=== PATIENT | female | born 1985 ===

== ENCOUNTER 2017-02-05 08:07 | Day surgery (SDC) | payer OTHER ==
[2017-02-05] MEDS ORDERED: cefOXitin IV 2 gm in Dextrose 2 GM/50 ML BAG IVPB ONE (10:50)
[2017-02-05] MEDS ORDERED: Propofol 10 mg/ml Inj (20 ML) ONE (10:58)
[2017-02-05] MEDS ORDERED: Midazolam 2 MG/2 ML VIAL ONE (10:58)
[2017-02-05] MEDS ORDERED: Lactated Ringer's 1,000 ML IV ONE (11:00)
[2017-02-05] MEDS ORDERED: Sodium Chloride 0.9% 20 ML IV ONE (11:57)
--- NOTE | 2017-02-05 14:22 | OP ---
PROCEDURE DATE: 02/05/2017 PREOPERATIVE DIAGNOSIS: Missed . POSTOPERATIVE DIAGNOSIS: Missed . PROCEDURE: Dilation and curettage of the uterus under ultrasound guidance. FINDINGS: An extremely stenotic cervix. Uterus above 6 weeks size with moderate products of conception. SURGEON: Baldev Good MD ANESTHESIA: General. ESTIMATED BLOOD LOSS: 50 mL. COMPLICATIONS: Nil. DESCRIPTION OF PROCEDURE: After the risks, benefits and alternatives of the planned procedures including, but not limited to the infection, hemorrhage, deep vein thrombosis, atelectasis, pneumonia, pulmonary embolism, damage to the bladder, damage to the ureter, renal insufficiency, renal failure, wound infection, wound dehiscence, incisional hernia, keloid formation, damage to large and small intestine, damage to inferior vena cava and aorta requiring extensive repair, anesthesia complications, electrolyte imbalance, possibility of , fluid overload, cerebral edema, uterine perforation, Asherman syndrome, retained products of conception and other complications that were discussed but are not listed above have been explained to the patient and all her questions answered, informed consent was obtained. The patient was taken to the operating room in a stable condition. Under a suitable level of general anesthesia, she was prepped and draped in a sterile fashion after having been placed in a dorsal lithotomy position. Bladder was emptied by straight catheterization. Examination under anesthesia revealed a 6-week size uterus, anteverted with no adnexal masses. A weighted speculum was inserted into vagina. The anterior lip of the cervix was grasped using a single-tooth tenaculum. The cervix was dilated to #7 Hegar dilator. Dilation was extremely difficult because the patient had significant degree of cervical stenosis and needed to be done under ultrasound guidance to avoid perforation of the uterus. A 7-mm suction tip was inserted into the uterus and contents of the endometrial cavity was suctioned out under ultrasound guidance. Half of the tissue was divided for chromosomal analysis and the remaining half was sent for general pathology. At the end of the procedure, instruments were removed from the vagina. There was good hemostasis. The patient tolerated the procedure well and was returned to the recovery room in a stable condition. Sponge, needle and instrument counts were correct x2. There were no complications. Baldev Good MD [facility] # [id number]
[2017-02-05 16:16] VITALS: BP 114/60; PULSE 80; RESP 18; TEMP 97.5; O2SAT 99
== END 2017-02-05 15:05 | disposition home or self-care (01) ==
LOC: C.SDS 08:07
PROVIDERS: ATTEND Obstetrics & Gynecology Reproductive Endocrinology
DX: O02.1 Missed abortion (principal)
CPT/HCPCS: 36415; 59820; 86850; 86900; 88233; 88262; 88305; J0694; J2210; J2250; J2704; J3010; J7120

== ENCOUNTER 2017-02-20 06:34 | Emergency (ER) | payer OTHER ==
[2017-02-20 06:43] VITALS: TEMP 97.9; O2SAT 98
[2017-02-20 07:21] LABS: RBC URINE 14 /hpf (0-3); URINE BACTERIA RARE (<OCC); URINE BILIRUBIN NEGATIVE (NEGATIVE); URINE BLOOD 3+ (NEGATIVE); URINE COLOR Straw (YELLOW); URINE GLUCOSE (UA) NORMAL (Normal); URINE KETONE NEGATIVE (NEGATIVE); URINE LEUKOCYTE ESTERASE 2+ Leu/uL (Negative); URINE PROTEIN NEGATIVE (NEGATIVE); URINE UROBILINOGEN NORMAL mg/dL (0.2-1.0); WBC URINE 9 /hpf (0-5)
[2017-02-20 07:36] LABS: BASO % 0.2 % (0.0-2.0); EOS # 0.1 K/uL (0.0-0.7); EOS % 0.4 % (0.0-4.0); HEMATOCRIT 39.2 % (34.0-47.0); LYMPH # 1.2 K/uL (1.0-4.3); LYMPH % 9.6 % (20.0-40.0); MEAN CORPUSCULAR HEMOGLOBIN 31.3 pg (27.0-31.0); MEAN CORPUSCULAR HGB CONC 34.4 g/dL (33.0-37.0); MEAN PLATELET VOLUME 8.3 fL (7.2-11.7); MONO # 0.6 K/uL (0.0-0.8); PLATELET COUNT 290 K/uL (130-400); RED CELL DISTRIBUTION WIDTH 12.6 % (11.5-14.5); WHITE BLOOD COUNT 13.1 K/uL (4.8-10.8)
[2017-02-20 07:50] LABS: CHLORIDE 100 mmol/L (98-107); POTASSIUM 4.2 mmol/L (3.6-5.2); SODIUM 137 mmol/L (132-148)
[2017-02-20 07:52] LABS: GFR AFRICAN-AMERICAN > 60
[2017-02-20 07:53] LABS: ALB/GLOB RATIO 1.3 (1.0-2.1); ALKALINE PHOSPHATASE 53 U/L (38-126); ALT/SGPT 22 U/L (9-52); AST/SGOT 16 U/L (14-36); BLOOD UREA NITROGEN 15 mg/dL (7-17); CALCIUM 6.9 mg/dl (8.6-10.4); CARBON DIOXIDE 23 mmol/L (22-30); GLUCOSE,RANDOM 70 mg/dL (65-105); TOTAL PROTEIN 7.9 g/dL (6.3-8.3)
--- NOTE | 2017-02-20 08:06 | C.PDOC ---
History Of Present Illness 31 year old female present to Emergency Department for evaluation of pelvic and low back pain described as cramping since 2:00 this morning. Patient notes taking Ibuprofen yesterday without significant relief. Patient is s/p D&C 2 weeks ago here at [facility] by Dr. Hodges. Patient reports being seen by Dr. Hodges this past week who performed a pelvic exam; patient was told everything appeared normal. Patient reports vaginal spotting that has been ongoing since the procedure 2 weeks ago; spotting has not worsened. She denies dysuria, hematuria, n/v/d, or fever. Time Seen by Provider: 02/20/17 07:03 Chief Complaint (Nursing): Abdominal Pain History Per: Patient History/Exam Limitations: no limitations Onset/Duration Of Symptoms: Days Current Symptoms Are (Timing): Still Present Severity: Mild Location Of Pain/Discomfort: Suprapubic Radiation Of Pain To:: Back Quality Of Discomfort: Cramping Associated Symptoms: Back Pain. denies: Fever, Chills, Nausea, Vomiting, Diarrhea, Chest Pain, Urinary Symptoms Exacerbating Factors: None Alleviating Factors: None. denies: OTC Meds Additional History Per: Patient Past Medical History Reviewed: Historical Data, Nursing Documentation, Vital Signs Vital Signs: Last Vital Signs Temp 97.9 F 02/20/17 06:37 Pulse 90 02/20/17 10:48 Resp 16 02/20/17 10:48 BP 116/64 02/20/17 10:48 Pulse Ox 98 02/20/17 10:48 - Medical History PMH: No Chronic Diseases Other Surgeries: D&C Family History: States: No Known Family Hx - Social History Hx Alcohol Use: Yes Hx Substance Use: No - Immunization History Hx Tetanus Toxoid Vaccination: No Hx Influenza Vaccination: No Hx Pneumococcal Vaccination: No Review Of Systems Except As Marked, All Systems Reviewed And Found Negative. Constitutional: Negative for: Fever, Chills Respiratory: Negative for: Shortness of Breath Gastrointestinal: Positive for: Abdominal Pain. Negative for: Nausea, Vomiting , Diarrhea Genitourinary: Positive for: Vaginal Bleeding (spotting), Pelvic Pain. Negative for: Dysuria, Frequency, Hematuria, Vaginal Discharge, Rash Musculoskeletal: Positive for: Back Pain Neurological: Negative for: Weakness, Numbness Physical Exam - Physical Exam Appears: Well, Non-toxic, No Acute Distress Skin: Warm, Dry Eye(s): bilateral: Normal Inspection Oral Mucosa: Moist Neck: Supple Cardiovascular: Rhythm Regular Respiratory: Normal Breath Sounds, No Rales, No Rhonchi, No Plerual Rub Gastrointestinal/Abdominal: Bowel Sounds, Soft, Tenderness (mild suprapubic TTP , (-) McBurney's ), No Guarding, No Rebound Back: Normal Inspection, No CVA Tenderness Extremity: Normal ROM, No Pedal Edema Neurological/Psych: Oriented x3 ED Course And Treatment - Laboratory Results Result Diagrams: 02/20/17 07:28 02/20/17 07:28 O2 Sat by Pulse Oximetry: 98 (on RA) Pulse Ox Interpretation: Normal - CT Scan/US TRANSVAGINAL US Other Rad Studies (CT/US): Read By Radiologist, Radiology Report Reviewed CT/US Interpretation: Accession No. : [id number]. Patient Name / ID : JORGE LUIS DANG / [id number]. Exam Date : 02/20/2017 09:36:32 ( Approved ). Study Comment : Sex / Age : F / 31Y. Creator : Sosa Horton MD. Dictator : Sosa Horton MD. Clamp Remover : Information Management Officer : Sosa Horton MD. Approver2 : Report Date : 02/20/2017 10:10:52. My Comment : . HISTORY: pelvic pain after D C. COMPARISON: None available. TECHNIQUE: Pelvis/Transvaginal Ultrasound. FINDINGS: UTERUS: Measures 10.2 x 5.4 x 6.1 cm. Anteverted. ENDOMETRIUM: Heterogeneous thickened endometrium measures approximately 2.8 cm in diameter with evidence of internal echoes and debris. CERVIX: No cervical abnormality identified. RIGHT OVARY: Measures 2.5 x 1.4 x 2.6 cm. Blood flow is demonstrated. LEFT OVARY: Measures 2.8 x 2.0 x 2.6 cm. Blood flow is demonstrated. FREE FLUID: Trace pelvic free fluid. OTHER FINDINGS: None. IMPRESSION: Heterogeneous thickened endometrium measures approximately 2.8 cm in diameter with evidence of internal echoes and debris. Retained products of conception not excluded. Correlate clinically. Trace pelvic free fluid. Progress Note: Blood work, UA, Upreg, upright CXR/abd Xray and transvaginal US ordered and reviewed. Patient given IV NS bolus, IV toradol. Reevaluation Time: 10:35 Reassessment Condition: Improved (On reassessment, patient is resting comfortably and states she feels better. On exam, abdomen is soft and nontender. Blood work shows mild leukocytosis, US shows thickened endometrium. Upreg (-). Patient given PO doxycycline and instruced to follow up with her bottom scrubber within 1 week. She understands she should return to ED if symptoms worsen.) - Physician Consult Information Physician Contacted: Baldev Good Outcome Of Conversation: Discussed patient with her bottom scrubber (8:35am), would like transvaginal US. If US ok, patient to be discharged home with Rx for doxycycline 100mg PO BID, and to follow up with him in the office. 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 WITHIN 1 WEEK USE MEDICATIONS DIRECTED RETURN TO ER IF SYMPTOMS WORSEN Prescriptions: Doxycycline Monohydrate 100 mg PO BID #14 tablet Naproxen 375 mg PO BID PRN #20 tablet PRN Reason: pain Instructions: Pelvic Pain in Women (ED) Forms: [email or web address] (Bermudian), Work Excuse Print Language: ITALIAN - POA Present On Arrival: None - Clinical Impression Clinical Impression: Pelvic pain - Scribe Statement The provider has reviewed the documentation as recorded by the Anthonyibmaciej Shipman All medical record entries made by the Scribe were at my direction and personally dictated by me. I have reviewed the chart and agree that the record accurately reflects my personal performance of the history, physical exam, medical decision making, and the department course for this patient. I have also personally directed, reviewed, and agree with the discharge instructions and disposition.
[2017-02-20 08:14] LABS: EOSINOPHIL 2 % (0-4); NEUTROPHIL 89 % (50-75); TOTAL CELLS COUNTED 100
--- NOTE | 2017-02-20 08:39 | RAD ---
PROCEDURE: Radiographs of the chest and abdomen HISTORY: upright chest/abdomen to r/o free air COMPARISON: No prior. TECHNIQUE: AP radiograph of the chest, with supine radiograph of the abdomen. FINDINGS: CHEST: Lungs: Clear. Cardiovascular: Normal size heart. No pulmonary vascular congestion. Pleura: No pleural fluid. No pneumothorax. Other findings: None. ABDOMEN AND PELVIS: Bowel: Unremarkable bowel gas pattern. No evidence of mechanical obstruction. Bones: Unremarkable. Other findings: None. IMPRESSION: Unremarkable radiographs of chest and abdomen.
--- NOTE | 2017-02-20 10:12 | US ---
HISTORY: pelvic pain after D C COMPARISON: None available. TECHNIQUE: Pelvis/Transvaginal Ultrasound FINDINGS: UTERUS: Measures 10.2 x 5.4 x 6.1 cm. Anteverted. ENDOMETRIUM: Heterogeneous thickened endometrium measures approximately 2.8 cm in diameter with evidence of internal echoes and debris. CERVIX: No cervical abnormality identified. RIGHT OVARY: Measures 2.5 x 1.4 x 2.6 cm. Blood flow is demonstrated. LEFT OVARY: Measures 2.8 x 2.0 x 2.6 cm. Blood flow is demonstrated. FREE FLUID: Trace pelvic free fluid. OTHER FINDINGS: None. IMPRESSION: Heterogeneous thickened endometrium measures approximately 2.8 cm in diameter with evidence of internal echoes and debris. Retained products of conception not excluded. Correlate clinically. Trace pelvic free fluid.
[2017-02-20 10:49] VITALS: BP 116/64; PULSE 90; RESP 16
== END 2017-02-20 10:49 | disposition home or self-care (01) ==
LOC: C.ER 06:34
DX: R10.2 Pelvic and perineal pain (principal); Z98.890 Other specified postprocedural states
CPT/HCPCS: 74022; 76830; 76856; 80053; 81001; 84703; 85025; 96374; 99285; J1885

== ENCOUNTER 2017-06-24 10:19 | Emergency (ER) | payer OTHER ==
[2017-06-24 10:36] VITALS: TEMP 98.2
--- NOTE | 2017-06-24 11:52 | C.PDOC ---
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 Patient states that she also had trouble breathing and felt like her heart was racing. She felt like she was "under water."Patient states that she drank some orange juice and she felt the same. Patient denies having headache, fever, chills, and other complaints. Time Seen by Provider: 06/24/17 11:31 Chief Complaint (Nursing): Anxiety History Per: Patient History/Exam Limitations: no limitations Onset/Duration Of Symptoms: Hrs Current Symptoms Are (Timing): Still Present Severity: Moderate Past Medical History Reviewed: Historical Data, Nursing Documentation, Vital Signs Vital Signs: Last Vital Signs Temp 98.2 F 06/24/17 10:35 Pulse 101 H 06/24/17 10:35 Resp 20 06/24/17 10:35 BP 113/71 06/24/17 10:35 Pulse Ox 94 L 06/24/17 11:56 - Medical History PMH: No Chronic Diseases Denies: Chronic Kidney Disease Other Surgeries: Hx of surgeries Family History: States: No Known Family Hx - Social History Hx Alcohol Use: Yes Hx Substance Use: No - Immunization History Hx Tetanus Toxoid Vaccination: No Hx Influenza Vaccination: No Hx Pneumococcal Vaccination: No Review Of Systems Except As Marked, All Systems Reviewed And Found Negative. Constitutional: Negative for: Fever, Chills Gastrointestinal: Positive for: Nausea Neurological: Positive for: Dizziness. Negative for: Weakness, Numbness Physical Exam - Physical Exam Appears: Non-toxic, No Acute Distress Skin: Normal Color, Warm Head: Atraumatic, Normacephalic Eye(s): bilateral: Normal Inspection Nose: Normal Oral Mucosa: Moist Neck: Supple Chest: Symmetrical Cardiovascular: Rhythm Regular Respiratory: Normal Breath Sounds, No Accessory Muscle Use, No Rales, No Rhonchi , No Wheezing Extremity: Normal ROM Neurological/Psych: Oriented x3, Normal Speech, Normal Motor, Normal Sensation ED Course And Treatment O2 Sat by Pulse Oximetry: 94 (RA) Pulse Ox Interpretation: Abnormal Medical Decision Making Medical Decision Making: Plan: --UA --UDS patient feeling better, will d/c in care of family. Disposition Counseled Patient/Family Regarding: Diagnosis, Need For Followup - Disposition Disposition: HOME/ ROUTINE Disposition Time: 12:45 Additional Instructions: Followup with your doctor. Instructions: Hyperventilation (ED) Forms: [facility] (Albanian), General Discharge Instructions - POA Present On Arrival: None - Clinical Impression Clinical Impression: Hyperventilation - Scribe Statement The provider has reviewed the documentation as recorded by the Anthonyibe Balbir Agarwal Provider Attestation: All medical record entries made by the Anthonyibe were at my direction and personally dictated by me. I have reviewed the chart and agree that the record accurately reflects my personal performance of the history, physical exam, medical decision making, and the department course for this patient. I have also personally directed, reviewed, and agree with the discharge instructions and disposition.
[2017-06-24 12:19] LABS: BARBITURATES, UR NEGATIVE (NEGATIVE); BENZODIAZEPINES, UR NEGATIVE (NEGATIVE); OPIATES, UR NEGATIVE (NEGATIVE); PHENCYCLIDINE, UR NEGATIVE (NEGATIVE)
[2017-06-24 13:12] VITALS: BP 103/66; PULSE 76; RESP 16; O2SAT 100
== END 2017-06-24 13:41 | disposition home or self-care (01) ==
LOC: C.ER 10:19
DX: R06.4 Hyperventilation (principal)